=== PATIENT | female | born 1970 | race Caucasian/White ===

== ENCOUNTER 2016-08-02 14:43 | Inpatient (IN) | payer MEDICARE ==
[~2016-08-02] VITALS: Ht 165.1 cm; Wt 194.9 kg
--- NOTE | ~2016-08-02 | CON ---
PATIENT'S NAME: PAULA SCALES [facility] AGE: 45 Y [address] ROOM: [id number] [place], [place] [address] LOCATION: [facility] ADMIT DATE: 08/02/2016 Consultation DISCHARGE DATE: FAMILY PHYSICIAN: Nathaniel Rivera MD ATTENDING PHYSICIAN: AYDEN FREEMAN DATE OF CONSULTATION: 08/04/2016 REFERRING PHYSICIAN: SONAL CLIFTON MD REASON FOR CONSULTATION: Septic right total knee arthroplasty. HISTORY OF PRESENT ILLNESS: Ms. Scales is a 45-year-old, female who is morbidly obese and has had a chronically infected left total knee arthroplasty which has been suppressed with Bactrim. She follows with Dr. Jose from [facility] for this. On April 19, she underwent a right total knee arthroplasty. In May, this was complicated with a quad rupture that required repair. She has had that healed up well, as did the initial surgery. She then subsequently had some kind of ligamentous injury and underwent surgery for this, she thinks on June 25. This healed up except for a small wound that had continued to drain what sounds like serous material. Last week at the end of the week, it was noted that she had started to have some malodorous drainage. They kind of cleaned it up, and then on Tuesday it looked good, but then on Tuesday it looked bad again. So, she was transferred up here as her primary orthopedist, Dr. Talbot, was out of town. On arrival here, it looked like she had infection in the knee and she underwent an attempted aspiration. They revealed 10 mL of blood-tinged purulent fluid, and then on the , she went to the OR and underwent explant of the infected right total knee arthroplasty and bone cement and had placement of antibiotic for impregnated cement spacer and beads. She underwent a washout of the tissues. Cultures of her knee as well as blood culture are growing an alpha strep at this point. The patient has been on vancomycin and Zosyn. ID is asked to see and assist with further evaluation and treatment. She denies having had fevers, chills, sweats, nausea, vomiting, or diarrhea. She does not have too much pain now. She does not have any urinary symptoms either. PAST MEDICAL HISTORY: Significant for the multiple knee surgeries, asthma, and morbid obesity. She has had tonsillectomy and a right shoulder surgery. SOCIAL HISTORY: Does not smoke, drink, or use illicit drugs. FAMILY HISTORY: PATIENT'S NAME: GLEN SCALESHA Aubree [facility] AGE: 45 Y [address] ROOM: [place] [address] LOCATION: [facility] ADMIT DATE: 08/02/2016 Consultation DISCHARGE DATE: FAMILY PHYSICIAN: Nathaniel Rivera MD ATTENDING PHYSICIAN: AYDEN FREEMAN Significant for cancer on both sides of the family. MEDICATIONS: She is on, 1. Vancomycin. 2. Zosyn. 3. Bactrim. ALLERGIES: LISTED TO SILVER. REVIEW OF SYSTEMS: All remaining review of systems are negative. Pertinent positives and negatives are in the HPI. PHYSICAL EXAMINATION: GENERAL: She is a morbidly obese female, not in any acute distress. Awake, alert, and oriented. She is on O2 via nasal cannula. VITAL SIGNS: Her T-max is 100, blood pressure is now 138/79, pulse 91, respirations and 18. HEENT: NC/AT. EOMI. PERRLA. NECK: Supple. LUNGS: Coarse with some raspy wheezes, mostly inspiratory. HEART: Distant but regular. ABDOMEN: Protuberant, soft. EXTREMITIES: Right knee is now wrapped. Left knee looks fine, mildly warm, but there is no erythema. The incision is closed. She has mild edema of her legs. SKIN: Without rash. DATA: White count 9.4, hemoglobin 7.6, and platelet count 369. She has a sedimentation rate of 45. Synovial fluid: White cells were 64,030, red cells were 105,000, and 88% neutrophils. There were no crystals noted. Creatinine is 0.8. CRP is 13.2. ASSESSMENT AND PLAN: 1. Septic right total hip arthroplasty, status post stage I revision with hardware removal and placement of antibiotic spacers and beads. Culture with an alpha strep. 2. Bacteremia with an alpha strep. 3. 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 4. Morbid obesity. PLAN: PATIENT'S NAME: GLEN SCALESHA Aubree [facility] AGE: 45 Y [address] ROOM: [place] [address] LOCATION: [facility] ADMIT DATE: 08/02/2016 Consultation DISCHARGE DATE: FAMILY PHYSICIAN: Nathaniel Rivera MD ATTENDING PHYSICIAN: AYDEN FREEMAN We will continue on her chronic suppression for now, but I need to figure out what the organism, as is it may be covered by what she is on presently or going forward. Certainly with the vancomycin, we would cover MRSA or sensitive Staph. It sounds like she took an antibiotic intravenously 3 times a day, so I am wondering if it was cefazolin, but I am not sure why she would be on Bactrim. In any case, the current cultures are growing an alpha strep which is usually either Pneumococcus or a Viridans species. We will narrow her Zosyn to ceftriaxone, continue the vancomycin for now, and see what more data shows. She is going to need 6 weeks of IV antibiotics, then likely a revision; in 8-10 weeks, it should be okay. If it is going to be longer than that, we may need to consider some oral antibiotics for a short time. We will get a PICC line placed, and we will get repeat blood cultures as well, that would be ideal to make sure her blood cultures are clear prior to placing the PICC if possible, so perhaps this can be done on Tuesday. CHIVO LOPEZ MD RCS/modl /[id number] CC: Ayden Freeman MD d: 08/04/162002 t: 08/10/16 [facility], CONSULTATION REPORT
--- NOTE | ~2016-08-02 | OR ---
[facility] AGE[facility] 45 Y [address] ROOM: [place] [address] [place] [facility] [place] DATE: 08/02/2016 OR/Procedure Report DISCHARGE DATE: FAMILY PHYSICIAN: Nathaniel Rivera MD ATTENDING PHYSICIAN: AYDEN FREEMAN SURGEON: Ayden Freeman MD DUPLICATING MACHINE OPERATOR: Tc Shahid PA-C. DATE OF PROCEDURE: 08/03/2016 PREOPERATIVE DIAGNOSIS: Septic right total knee arthroplasty with purulent wound dehiscence. POSTOPERATIVE DIAGNOSIS: Septic right total knee arthroplasty with purulent wound dehiscence. PROCEDURE: 1. Explant of infected right total knee arthroplasty and bone cement 2. Placement of antibiotic impregnated cement joint spacers and beads. 3. Irrigation and debridement of right knee wound including skin, subcutaneous tissue, muscle, fascia, and bone, 20 cm in length by 10 cm in depth. 4. Placement of negative pressure incisional wound VAC for incision measuring approximately 20 cm in length. ANESTHESIA: General endotracheal anesthesia. FLUIDS: 2 L of crystalloids. EBL: 150. TOURNIQUET: Right proximal thigh at 300 mmHg for 2 hours. SPECIMEN: Explanted right total knee arthroplasty (Omni TKA). COMPLICATIONS: None. DISPOSITION: Stable in PACU. COUNTS: All counts were correct. IMPLANTS: Biomet antibiotic-impregnated distal femur/proximal tibia cement spacers and Stimulan antibiotic beads. Placement of Privena incisional wound vac system. INDICATIONS: Ms. Scales is a 45-year-old female with a septic right total knee replacement. She has an active wound with a wound VAC in place. I discussed the risks, benefits, and alternatives of pursuing the procedures as noted above. Anesthesia was consulted for their perioperative evaluation of PATIENT'S NAME: RADHA [place]IL[place] Aubree [facility] AGE: 45 Y [address] ROOM: [place] [address] [place] [facility] [place]: 08/02/2016 OR/Procedure Report DISCHARGE DATE: FAMILY PHYSICIAN: Nathaniel Rivera MD ATTENDING PHYSICIAN: AYDEN FREEMAN the patient. I marked the right lower extremity indicating the correct surgical site. OPERATIVE REPORT IN DETAIL: The patient was taken from the holding area to the operating room. A time-out was performed. General endotracheal anesthesia was administered. The patient was positioned supine on the operating table and all other bony prominences were padded. Notably, the patient is morbidly obese. A nonsterile tourniquet was placed in the right proximal thigh over Webril and a knee brace was placed beneath it. The right lower extremity was then prepped and draped in a sterile fashion. There was an active wound at the anterior aspect of the knee at the proximal portion of the incision with purulent drainage. The leg was elevated and allowed to exsanguinate. The tourniquet was inflated to 300 mmHg. I followed the previous incision over the anterior aspect of the knee through skin and subcutaneous tissue. I subsequently incised the capsule sharply. I removed any debris and suture material left over. There was florid purulence in the knee joint. I subsequently performed soft-tissue release medially, flexed the knee up and dislocated it. I used rongeurs to debride the soft tissue surrounding it. I used an osteotome to remove the tibia tray. Once the tibia was isolated, I was able to remove it. There was not much bone loss on the tibia side. I used a series of curettes to remove any excess bone on the tibia. I used a series of curettes to remove any excess cement from the intramedullary canal. I then turned my attention to the patella. Using an oscillating saw, I removed the patella button. I then used a 2.5 mm drill bit to remove the polyethylene pegs from their holes. I used a curette to remove any excess cement on the patella. There was not much bone loss on the patellar side. Notably just lateral to the patella was a full thickness retinacular tear of approximately 6 cm in length. I turned my attention to the distal femur. Using a series of osteotomes, I removed the femoral component. I removed the excess cement with a series of curettes. Again, there was not much bone loss on the femoral side. The wound was copiously irrigated with a normal sterile saline solution via pulsatile lavage using 9 L of solution that contained bacitracin. Any excess debris was removed from the joint. Every attempt was made to remove all of the pre-existing cement from the primary procedure. After the joint surfaces were prepared, we mixed our antibiotic cement spacers. I placed my tibial spacer followed by my femoral spacer and reduced PATIENT'S NAME: PAULA SCALES [facility] AGE: 45 Y [address] ROOM: [id number] [place], [place] [address] [place] [facility] [place] DATE: 08/02/2016 OR/Procedure Report DISCHARGE DATE: FAMILY PHYSICIAN: Nathaniel Rivera MD ATTENDING PHYSICIAN: AYDEN FREEMAN the joint. I made the knee achieved full extension and I placed a bump under to allow the cement to cure. The collaterals were stable. I placed antibiotic beads in the medial and lateral gutters to fill space and to optimize illusion of the antibiotic. A #1 PDS suture was used in an interrupted [id number] fashion to reapproximate the capsule. The same #1 PDS suture was used to repair the retinaculum in the same fashion. I then copiously irrigated the wound again with normal sterile saline solution via pulsatile lavage. I approximated the subcutaneous tissue, which is mostly scar tissues since the patient had been operated on on prior occasions, using 0 PDS suture to approximate this tissue. 0 nylon suture was used in a horizontal mattress fashion to approximate the skin. There was no undue tension of the surgical incision. Seeing that the entire wound was effectively loosely approximated to allow for drainage, I placed an incisional wound VAC. The tourniquet was then let down. The leg was cleaned off and dressings were placed in the form of Webril and Rudolph wrap from the foot up to the proximal thigh. The patient was then placed into a knee immobilizer. The patient was then transferred from the operating table onto the stretcher and extubated. She was subsequently brought to the recovery room in stable condition. There were no intraoperative complications noted. Of note, my PA, Tc Shahid PA-C, played an integral role in the intraoperative care of this patient. This included preoperative positioning, intraoperative expert retraction, and closing and dressing functions. IMPRESSION: The patient is status post the noted procedures above. PLAN: The patient may be weightbearing as tolerated on the right lower extremity. She will have a knee immobilizer or hinged knee brace locked in extension on at all times. Incisional wound VAC is currently in place. We will keep this on for anywhere from 48-72 hours. Antibiotics have been administered and will continue to be administered in the form of vancomycin and Zosyn. We are currently awaiting the results of the knee aspirate on admission. We will ask that the Hospitalist continue to manage the patient's concomitant medical comorbidities. We will ask the Physical Therapy and Occupational Therapy will be consulted for early ambulation and prevention of deconditioning. We will ask the Case Management and Social Work be consulted as the patient may require placement postoperatively. I will ask that Infectious Disease also be consulted to evaluate the results of the patient's cultures and make antibiotic recommendations moving forward. I will continue to watch the patient closely in the perioperative period. PATIENT'S NAME: PAULA SCALES [facility] AGE: 45 Y [address] ROOM: [place] [address] [place] [facility] [place] DATE: 08/02/2016 OR/Procedure Report DISCHARGE DATE: FAMILY PHYSICIAN: Nathaniel Rivera MD ATTENDING PHYSICIAN: AYDEN FREEMAN MD NUPUR CHOUDHURY/modl /[id number] d: 08/03/16 2341 t: 08/04/16 0853, OPERATIVE SUMMARY
--- NOTE | ~2016-08-02 | DS ---
PATIENT'S NAME: GLEN GARCIAHA Aubree [facility] AGE: 45 Y [address] ROOM: [place] [address] LOCATION: [facility] [place] ADMIT DATE: 08/02/2016 Discharge Summary DISCHARGE DATE: 08/12/2016 FAMILY PHYSICIAN: Nathaniel Rivera MD ATTENDING PHYSICIAN: Ayden Freeman DATE OF TRANSFER: August 12, 2016. ADMITTING DIAGNOSES: Septic right total knee arthroplasty with wound dehiscence and bacteremia DISCHARGE DIAGNOSES: Spetic right total knee arthroplasty with wound dehiscence and bacteremia SECONDARY DIAGNOSES: 1. Asthma. 2. Morbid obesity. 3. Obstructive sleep apnea. 4. Chronic hypoxic respiratory failure. 5. History of deep venous thromboses. 6. Atrial fibrillation, on Xarelto. 7. History of recurrent periprosthetic infections. 8. History of mediastinal lymphedema, which was ruled to be benign. 9. History of peptic ulcer disease. TRANSFER STATUS: Good. CONSULTATIONS: Dr. Bebo Hardwick with Infectious Disease, Dr. William Frye, Hospitalist Service for medical management. Wound Care was also consulted for wound VAC management. PROCEDURES: The patient on August 02 underwent an aspiration of right knee at bedside, the aspiration was done by Dr. Freeman. On August 03, 2016, the patient underwent the following procedure by Dr. Freeman. 1. Explant of infected right total knee arthroplasty and bone cement. 2. Placement of antibiotic-impregnated cement joint spacers and beads. 3. Irrigation and debridement of right knee wound including skin, subcutaneous tissue, muscle, fascia, and bone, 20 cm in length x 10 cm in depth. 4. Placement of negative pressure incisional wound VAC for incisional measuring approximately 20 cm in length. HISTORY OF PRESENT ILLNESS: The patient is a 45-year-old female who underwent a right knee replacement in the past. She has subsequent rupture of her right PATIENT'S NAME: RADHA [facility] AGE: 45 Y [address] ROOM: [place] [address] LOCATION: [facility] [place] ADMIT DATE: 08/02/2016 Discharge Summary DISCHARGE DATE: 08/12/2016 FAMILY PHYSICIAN: Nathaniel Rivera MD ATTENDING PHYSICIAN: Ayden Freeman quadriceps tendon, which required surgical repair. She also reported 3 previous operations to her left knee. She had been treated and operated on by Dr. Talbot in [place], [place]. The patient prior to admission was having a wound problem, was being treated with negative pressure wound VAC of her right knee. She was also on Bactrim for chronic antibiotic suppression therapy of her left knee, which is infected. Dr. Freeman had received a phone call, the patient's right knee had become more symptomatic. She had developed a cellulitis of her right leg. There was also noted purulent drainage accumulating the patient's wound VAC canister 24 hours prior to admission. Dr. Talbot was out of town and his PA contacted Dr. Freeman for transfer to [facility] for definitive orthopedic care. HOSPITAL COURSE: The patient underwent the above described procedures by Dr. Freeman. Blood cultures did show that she was bacteremic with streptococcus oralis. She was treated with IV antibiotics. Infectious Disease was consulted for management of the bacteremia. The hospitalists were also consulted and managed the patient medically while in the hospital. The patient did work with Physical Therapy and Occupational Therapy with transfers. She was weightbearing as tolerated in a knee immobilizer, locked in extension that she had from prior to the admission. The patient was kept under adequate pain control during her admission. The patient's overall bacteremia did resolve, but the patient will need to be on long-term IV antibiotics due to her septic joint. Arrangements were made by the Case Management to have the patient transferred to [facility] for long-term fpc care. The patient may also be seen by Dr. Talbot in [place]. DISCHARGE/TRANSFER INSTRUCTIONS: The patient was transferred to [facility] on August 12, 2016. The patient was transferred with a right incisional wound VAC to her right knee. Wound VAC changes were instructed on Tuesday, Tuesday, Tuesday, per wound care instruction. The patient is to be weightbearing as tolerated to the right lower extremity in a hinged knee brace locked in extension. She is to continue with Occupational and Physical Therapy. The patient is to have a regular diet. The patient was transferred to the care of AGUSTIN Saucedo. Dr. Talbot will follow the patient while in [place]. Arrangements will be followed to have the patient followed up with Dr. Freeman in a couple weeks. Transfer status was good. ANGELI RODRÍGUEZ PA-C FOR AYDEN FREEMAN MD TJW/modl PATIENT'S NAME: PAULA GARCIA [facility] AGE: 45 Y [address] ROOM: [place] [address] LOCATION: [facility] [place] ADMIT DATE: 08/02/2016 Discharge Summary DISCHARGE DATE: 08/12/2016 FAMILY PHYSICIAN: Nathaniel Rivera MD ATTENDING PHYSICIAN: Ayden Freeman /[id number] d: 08/27/16 0337 t: 08/30/16 1017, DISCHARGE SUMMARY
--- NOTE | ~2016-08-02 | HP ---
PATIENT'S NAME: PAULA SCALES [facility] AGE: 45 Y [address] ROOM: [address] [address] [place] [facility] [place]: 08/02/2016 History & Physical DISCHARGE DATE: FAMILY PHYSICIAN: Nathaniel Rivera MD ATTENDING PHYSICIAN: AYDEN FREEMAN DATE OF SERVICE: CHIEF COMPLAINT: Right knee pain and drainage. HISTORY OF PRESENT ILLNESS: Ms. Scales is a pleasant 45-year-old morbidly obese female who underwent a right knee replacement in the past. She subsequently ruptured her quadriceps tendon and required surgical repair. She reports 3 previous operations to this left knee. She has been treated and operated on by Dr. Talbot in [place], [place]. The patient currently has a wound problem and is being treated with a negative pressure wound VAC. She is on Bactrim for chronic antibiotic suppression therapy as her left knee is infected. At this time, the right knee is quite symptomatic. She has a cellulitis on her leg. Dr. Talbot is currently out-of-town, and Dr. Talbot's PA, Marne, contacted us of the patient's transfer to [facility] for definitive orthopedic care. Note that in the last 24 hours, the PA in [place] noted purulent drainage accumulating in the wound VAC canister. This prompted the concern for new infection and transfer to our care. Currently, the patient denies any constitutional symptoms such as fever, chills, or night sweats. She also denies any dizziness, chest pain, blurred vision, nausea, vomiting, or diarrhea. The patient does report shortness of breath and this is positional in nature. PAST MEDICAL HISTORY: Chronic asthma Morbid obesity PAST SURGICAL HISTORY: Includes a previous left knee replacement that is chronically infected and treated with antibiotics for suppression therapy, a right total knee replacement followed by a right quadriceps tendon repair, followed by a right knee wound dehiscence with subsequent repeat I and D of the right knee and placement of negative pressure wound VAC, tonsillectomy, and right shoulder surgery. SOCIAL HISTORY: No alcohol, tobacco, or illicit drug use. The patient is an independent ambulator at baseline. PATIENT'S NAME: GLEN SCALESHA Aubree [facility] AGE: 45 Y [address] ROOM: [address] [address] [place] [facility] [place]: 08/02/2016 History & Physical DISCHARGE DATE: FAMILY PHYSICIAN: Nathaniel Rivera MD ATTENDING PHYSICIAN: AYDEN FREEMAN FAMILY HISTORY: There is a history of cancer on the maternal and paternal sides of the family. MEDICATIONS: Currently, include: 1. Bactrim. 2. Sodium bromide. 3. Fluticasone. 4. Furosemide. 5. Pantoprazole. 6. Metoprolol. 7. Gabapentin. 8. Diltiazem. 9. Ropinirole. 10. Digoxin. 11. Potassium chloride. 12. Meloxicam. 13. Zolpidem. 14. Albuterol. 15. Oxycodone. 16. Acetaminophen. 17. Xarelto, which the patient took last yesterday. ALLERGIES: INCLUDE SILVER. PHYSICAL EXAMINATION: VITAL SIGNS: Blood pressure 113/60, 99.1 is temperature, a 100 pulse, and respiratory rate 22. GENERAL: The patient is awake, alert, and oriented x3. She is in no acute distress. She is actively conversing with me at the bedside. HEENT: Normocephalic and atraumatic. Extraocular motion intact. PERRLA. Moist mucous membranes. Oropharyngeal airway is clear. NECK: Supple. Trachea is midline. ABDOMEN: Soft, nontender, and nondistended. CHEST: Normal respirations are observed bilaterally. CARDIOVASCULAR: Regular rate and rhythm. MUSCULOSKELETAL: Right lower extremity: Focal examination of the patient's right lower extremity reveals that she is grossly neurologically intact distally. There is palpable dorsalis pedal and posterior tibial pulses. There is florid cellulitis of the leg. There is a partially healed surgical incision at the anterior aspect of the knee from previous knee replacement. The proximal aspect of the incision is covered with a negative pressure wound VAC. The patient showed me a picture of her right knee wound, which measures approximately 2 cm x 2 cm x 10 cm in depth. There is good capillary refill in PATIENT'S NAME: PAULA SCALES [facility] AGE: 45 Y [address] ROOM: [address] [address] [place] [facility] [place]: 08/02/2016 History & Physical DISCHARGE DATE: FAMILY PHYSICIAN: Nathaniel Rivera MD ATTENDING PHYSICIAN: AYDEN FREEMAN the toes. She has active and passive range of motion of the ankle and strength is well-preserved distally. Sensation intact to light touch at L2 through S1. The patient has active extension of the knee and quadriceps strength graded at 4+/5. Her collateral ligaments appear stable. Left lower extremity: Focal examination of the patient's left lower extremity reveals a well-healed surgical incision on the anterior aspect of the left knee. There is no knee joint effusion present. The patient has full range of motion of the knee and her collaterals are stable. Compartments of the thigh, leg, and foot are soft bilaterally. Sensation is intact to light touch at L2 through S1. There is palpable pulses, full strength, and range of motion of the ankle. The patient's quadriceps mechanism is intact and her quad strength is 4+/5. IMAGING: Plain radiographs of the right lower extremity were previously obtained. There is evidence of a right total knee arthroplasty in place. LABORATORY DATA: Currently, pending an aspiration of the right knee recently undertaken by me here at the bedside. IMPRESSION: Right infected total knee arthroplasty with wound dehiscence. PLAN: I had a long discussion with the patient today regarding her right knee. I accepted the patient under my care from [place]. She has a wound that has purulent drainage that has been slow to heal. The patient has a chronically infected left knee that is undergoing antibiotic suppression therapy. Currently, her left knee is asymptomatic. The right knee on the other hand is another story. I explained to the patient at the very least she would need irrigation and debridement of the right knee in exchange of the polyethylene liner. More than likely, the patient will require an irrigation and debridement of the right knee with explant of her right total knee arthroplasty. I discussed the risks, benefits, and alternatives pursuing a surgical intervention with the patient in detail. I discussed the risks of new infection, bleeding, and/or injury to neurovascular structures about the right lower extremity. The patient has already had 3 major operations to the right knee. There is a chance that even under the best circumstances, the patient may not be suitable to have the right knee reimplanted at a later date. The patient may even require fusion as a salvage procedure. I discussed with her the process of the risks, benefits, and alternatives pursuing a right knee aspiration at the bedside to send the fluid for analysis in the lab. The patient was agreeable to this as well and informed consent was obtained for both the aspiration and the surgery planned for tomorrow. PATIENT'S NAME: PAULA SCALES [facility] AGE: 45 Y [address] ROOM: [address] [address] [place] [facility] [place]: 08/02/2016 History & Physical DISCHARGE DATE: FAMILY PHYSICIAN: Nathaniel Rivera MD ATTENDING PHYSICIAN: AYDEN FREEMAN Prior to pursuing the surgery, I will obtain a CT scan of the right knee tonight. We will also obtain a battery of blood work going forward. The patient last took Xarelto yesterday. We will hold that for now. She is currently on Bactrim though we will hold any further antibiotic treatment until the knee is aspirated today. We will likely start the patient on vancomycin and Zosyn. We will have the pharmacy to dose this. We have asked the hospitalist to see and evaluate the patient for preoperative medical optimization and clearance for OR tomorrow. We will make the patient nonweightbearing in the right lower extremity for now. I will request that the patient be transferred to a bariatric bed. I will continue to follow the patient closely in the perioperative period. MD NUPUR CHOUDHURY/modl /[id number] D: 052 T: 845 HISTORY & PHYSICAL
--- NOTE | ~2016-08-02 | CON ---
PATIENT'S NAME: GLEN GARCIAHA Aubree [facility] AGE: 45 Y [address] ROOM: [place] [address] [place] [facility] [place] DATE: 08/02/2016 Consultation DISCHARGE DATE: FAMILY PHYSICIAN: Nathaniel Rivera MD ATTENDING PHYSICIAN: AYDEN FREEMAN DATE OF CONSULTATION: 08/02/2016 REQUESTING PHYSICIAN: Ayden Freeman MD. REASON FOR CONSULTATION: Medical management. HISTORY OF PRESENT ILLNESS: The patient is a 45-year-old female with past medical history most significant for bilateral total knee replacements with subsequent longstanding complicated infections on both sides. These have required prior reoperation as well as lifelong suppressive therapy with Bactrim for her left knee, and a recurrent osteomyelitis/cellulitis of her right knee. The patient was brought to the hospital today by Dr. Freeman for surgical management of a right periprosthetic arthritis/osteomyelitis. The patient does have a wound VAC over an open wound on that right knee. The entire knee feels quite warm and swollen and it is also painful. REVIEW OF SYSTEMS: Significant for pain, but no nausea, vomiting, chest pain, shortness of breath beyond baseline, diaphoresis, or syncope. All systems have been reviewed and are negative aside from pertinent positives mentioned above. PAST MEDICAL HISTORY: This had to be extracted from our medical records, as the patient is quite a poor historian, significant for, 1. Long-standing asthma. 2. Morbid obesity due to excess calories. 3. Obstructive sleep apnea, on CPAP. 4. Chronic hypoxic respiratory failure. 5. History of DVTs. 6. History of atrial fibrillation, currently on Xarelto. 7. Recurrent periprosthetic infections, requiring Bactrim therapy. 8. Distant history of mediastinal lymphadenopathy which proved to be benign. 9. History of peptic ulcer disease, supposedly now treated. SURGICAL HISTORY: PATIENT'S NAME: RADHA [facility] AGE: 45 Y [address] ROOM: [place] [address] LOCATION: [facility] [place] DATE: 08/02/2016 Consultation DISCHARGE DATE: FAMILY PHYSICIAN: Nathaniel Rivera MD ATTENDING PHYSICIAN: AYDEN FREEMAN Significant for shoulder surgeries and multiple knee surgeries as above. CURRENT MEDICATIONS: 1. Tylenol Extra Strength. 2. Aclidinium bromide. 3. Albuterol. 4. Digoxin. 5. Diltiazem. 6. Breo Ellipta. 7. Furosemide 20. 8. Gabapentin. 9. Meloxicam. 10. Metoprolol. 11. Oxycodone/acetaminophen. 12. Pantoprazole. 13. Potassium chloride. 14. Requip. 15. Bactrim DS twice a day. 16. Ambien. SOCIAL HISTORY: The patient denies any history of drug, tobacco, or illicit substance abuse. FAMILY HISTORY: Significant for cancer on both sides of the family in the 60s. PHYSICAL EXAMINATION: VITAL SIGNS: Blood pressure is 113/60, heart rate is 100, temperature 99, and saturating 91% on room air. GENERAL: Appears as a morbidly obese, middle-aged female, in no acute distress. NEUROLOGICAL: Grossly nonfocal. EYES: Pupils are equal and reactive to light. LYMPHATIC: No cervical lymphadenopathy. ENDOCRINE: No thyromegaly. LUNGS: Exhibit diminished respiratory effort, but clear to auscultation. No wheezing. HEART: Regular rate and rhythm. No appreciable murmurs, gallops, or rubs. GI: Abdomen is obese, soft, nontender, and nondistended. : No costovertebral angle tenderness. VASCULAR: 2+ pedal pulses. MUSCULOSKELETAL: Considerable warmth and erythema around the right knee. There is a wound VAC over that knee draining purulent fluid. SKIN: Warm and dry. PSYCHIATRIC: Appropriate mood, cognition, and affect. PATIENT'S NAME: PAULA GARCIA [facility] AGE: 45 Y [address] ROOM: [address] [address] [place]: [facility] [place] DATE: 08/02/2016 Consultation DISCHARGE DATE: FAMILY PHYSICIAN: Nathaniel Rivera MD ATTENDING PHYSICIAN: AYDEN FREEMAN LABORATORY DATA: No studies are available as of now. IMPRESSION AND RECOMMENDATIONS: This is a morbidly obese, 45-year-old female, who is admitted with, 1. Recurrent periprosthetic osteomyelitis. Per discussion with Dr. Freeman, he will tap the joint and the patient will be taken to the OR for possible removal of the hardware. We will start antibiotic after those 2 procedures are completed. 2. Asthma. At this point, the patient appears to be at baseline and we will continue her on her asthma regimen. 3. Obstructive sleep apnea. We will continue the patient on BiPAP with home settings. 4. Atrial fibrillation/history of deep venous thrombosis. We will hold off on her Xarelto if a surgical procedure is planned. We will continue her on digoxin and Cardizem. We will monitor her electrolytes and heart rates while she is in the hospital. 5. Morbid obesity due to excess calories noted. Additional management will depend on clinical course. Time dedicated to patient's encounter is 35 minutes. We will follow the patient with you. Thank you for allowing us to participate in the care of this patient. MD GUILLERMO MORALES/savanna /[id number] d: 08/03/16 0056 t: 08/08/16 1534, CONSULTATION REPORT
--- NOTE | ~2016-08-02 | ECHO ---
Transthoracic Echocardiography Report (TTE) Demographics Patient Name PAULA GARCIA Date of Study 08/08/2016 Patient Number [id number] Visit Number [id number] Date of 1970 Room Number G3215 Gender Female Number Age 45 year(s) Referring Miguel Montgomery Certified Travel Counselor Kayode RVT, RDCS Physician Anne Physician Interpreting Russell Leslie MD Manager Nuclear Physician Supervising Ordering Derek Acevedo MD, MD/MLP Physician Nurse Stress State Manager Conclusions Contractility Score Summary Normal Left Ventricular contractility was noted. Summary Technically difficult exam due to patients body habitus. The estimated left ventricular ejection fraction is 60-65%. 3 mL Definity contrast was administered. Moderate concentric left ventricular hypertrophy with normal internal dimension,EF and WM. Trivial MR and TR. Procedure Type of Study TTE procedure:2D Echocardiogram, M-Mode, Doppler , Color Doppler, Contrast study. Procedure Date Date: 08/08/2016 Start: 08:04 AM Study Location: Imaging Center Technical Quality: Limited visualization Indications:Murmur. Appropriate Use Criteria: 7 Patient Status: Routine HR: 103 bpm BP: 127/64 mmHg M-Mode/2D Measurements LV Diastolic Dimension: 4.73 cm LV Systolic Dimension: 2.75 cm LV Septum Diastolic: 1.69 cm LV PW Diastolic: 1.89 cm AO Root Dimension: 2.2 cm Cardiac Output: 8.25 l/min LA Dimension: 3.6 cm LVOT: 2 cm LVOT VTI: 25.5 cm RV Base: 3.18 cm LV Stroke volume: 80.07 ml RV Length: 7.14 cm TAPSE: 3.28 cm TDI-S': 21.9 cm/s Doppler Measurements AV Peak Velocity: 1.92 m/s MV Peak E-Wave: 1.2 m/s AV Peak Gradient: 14.75 mmHg MV Peak A-Wave: 0.97 m/s AV Mean Gradient: 10 mmHg MV E/A Ratio: 1.24 LVOT Peak Velocity: 1.14 m/s MV P1/2t: 67 msec PV Peak Velocity: 1.28 m/s E' Septal Velocity: 0.13 m/s PV Peak Gradient: 6.55 mmHg E' Lateral Velocity: 0.14 m/s A' Septal Velocity: 0.08 m/s A' Lateral Velocity: 0.2 m/s Findings Left Ventricle Moderate concentric left ventricular hypertrophy with normal internal dimension,EF and WM. Right Ventricle Normal right ventricle structure and function. Left Atrium Normal left atrial size. Right Atrium Normal right atrial size. Mitral Valve Trivial mitral regurgitation by color Doppler. Aortic Valve Normal aortic valve structure and function. Tricuspid Valve Trivial tricuspid regurgitation by color Doppler. Pulmonic Valve The pulmonic valve is not well visualized. Pericardial Effusion No evidence of pericardial effusion. Pleural Effusion No evidence of pleural effusion. Contractility Score LV regional wall motion:(0-Non visualized 1-Normal 2-Hypokinesis 3-Akinesis 4-Dyskinesis 5-Aneurysm) Signature dtt: Mariama Wells dtd: 08/08/16 0804 Physician Self Edit
--- NOTE | ~2016-08-02 | OR ---
PATIENT'S NAME: PAULA GARCIA [facility] AGE: 45 Y [address] ROOM: [place] [address] [place] [facility] [place]: 08/02/2016 OR/Procedure Report DISCHARGE DATE: FAMILY PHYSICIAN: Nathaniel Rivera MD ATTENDING PHYSICIAN: WILY BRANDT SURGEON: Wily Brandt MD INCINERATOR OPERATOR: DATE OF PROCEDURE: 08/02/2016 INDICATION: A 45-year-old female. Right knee aspiration at the bedside. PROCEDURE REPORT IN DETAIL: Under sterile preparation, the right knee was aspirated using a 6-inch 18-gauge needle to the superolateral aspect of the knee. Using a 10 mL syringe, 10 mL of blood-tinged purulent fluid was aspirated from the joint space. A clean Band-Aid was placed over the aspirated area. The patient tolerated the procedure well. The fluid will be sent to the lab for analysis. WILY BRANDT MD RCD/modl /[id number] d: 08/03/16 0024 t: 08/03/16 1413, OPERATIVE SUMMARY
[2016-08-02] MEDS ORDERED: TUDORZA PRESS400 MCG INH (16:16)
[2016-08-02] MEDS ORDERED: BREO ELLIPTA 21 EACH INH (16:17)
[2016-08-02] MEDS ORDERED: PROTONIX40 MG PO (16:17)
[2016-08-02] MEDS ORDERED: LASIX20 MG PO (16:17)
[2016-08-02] MEDS ORDERED: NEURONTIN300 MG PO ×2 (16:18→16:19)
[2016-08-02] MEDS ORDERED: LOPRESSOR25 MG PO (16:18)
[2016-08-02] MEDS ORDERED: CARTIA XT240 MG PO (16:19)
[2016-08-02] MEDS ORDERED: ROPINIROLE HCL5 MG PO (16:20)
[2016-08-02] MEDS ORDERED: LANOXIN (DIGI125 MCG PO (16:20)
[2016-08-02] MEDS ORDERED: MOBIC15 MG PO (16:21)
[2016-08-02] MEDS ORDERED: BACTRIM DS1 TAB PO (16:21)
[2016-08-02] MEDS ORDERED: POTASSIUM CHLO10 MEQ PO (16:21)
[2016-08-02] MEDS ORDERED: AMBIEN10 MG PO (16:21)
[2016-08-02] MEDS ORDERED: PROAIR HFA8.5 GM INH (16:22)
[2016-08-02] MEDS ORDERED: PERCOCET 10-321 EACH PO (16:22)
[2016-08-02] MEDS ORDERED: TYLENOL EXTRA500 MG PO (16:22)
--- NOTE | 2016-08-02 16:49 | NUR ---
patient is 45 yo female admitted for I&D of right knee wound. has hx of infection after the knee was replaced in 06/2015. patient had surgery 2 weeks after initial replacement surgery, then 2 weeks after that, then did okay. she states she has had problems on , and now is admitted again on 08/02/16 for I&D of wound. IV is started in left forearm with 20 ga intracath without difficulty. lidocaine was used per pt request. shay well. education is given as documented. patient denies questions at this time. foot pneumatics are on bilaterally. call light is within reach. patient denies other needs. watches tv. report is given to ELVIS Dupree.
[2016-08-02 18:41] LABS: BASOPHIL % 0.4 %; EOSINOPHIL # 0.2 K/uL (0.0-0.5); EOSINOPHIL % 2.4 %; HEMOGLOBIN 9.3 g/dL (10.0-15.0); IMMATURE GRANULOCYTE # 0.1 K/uL (0.0-0.3); IMMATURE GRANULOCYTE % 0.6 %; LYMPHOCYTE # 1.5 K/uL (0.8-4.0); LYMPHOCYTE % 16.4 %; MCH 21.3 pg (27.0-34.0); MCHC 28.2 gm/dL (32.0-36.5); MCV 75.7 fl (83.0-98.0); MONOCYTE # 0.7 K/uL (0.0-1.0); MPV 8.8 fl (9.4-12.4); NEUTROPHIL # (ANC) 6.5 K/uL (1.8-7.8); NEUTROPHIL % 72.2 %; NRBC % 0.2 /100WBC (0-0.00); PLATELET COUNT 450 K/uL (150-450); RBC 4.36 M/uL (3.50-5.50); RDW-CV 18.5 % (11.9-14.6)
[2016-08-02 18:56] LABS: ALBUMIN 3.3 gm/dL (3.5-5.0); ALK PHOS 66 IU/L (33-138); ALT 16 IU/L (12-78); ANION GAP 16.2 (10.0-19.0); AST 12 IU/L (10-40); BLOOD UREA NITROGEN 10 mg/dL (6-24); CALCIUM 8.4 mg/dL (8.5-10.5); CHLORIDE 100 mMol/L (96-110); CO2 27 mMol/L (22-32); CREATININE 0.8 mg/dL (0.5-1.1); ESTIMATED GFR (MDRD EQUATION) > 60; POTASSIUM 4.2 mMol/L (3.7-5.1); SODIUM 139 mMol/L (135-145); TOTAL BILIRUBIN 0.3 mg/dL (0.0-1.5); TOTAL PROTEIN 7.2 g/dL (6.0-8.4)
--- NOTE | 2016-08-02 19:36 | NUR ---
Significant Event:Up to floor about [id number].Rt.knee has wound vac on it.Rt.knee/leg swollen & very reddened.SL in Rt.arm.Was amb when first here,is now ordered no wt.bearing on Rt.leg. was in and with екатерина 10ml serosanguious fld from Rt.knee to send to lab for testing.Ordered her a bariatric bed.Is to have surgery tomorrow morning on Rt.knee.NPO after midnoc.No c/o pain except for headache. Follow up:
--- NOTE | 2016-08-03 03:58 | NUR ---
Significant Event: Wound vac to R) leg. Dressing to r) knee intact. CSM WNL. 1 assist to the bedside commode. NWB to R) leg. On CPAP and 3 L of oxygen was added to CPAP, MD aware. NPO since midnight. Permits not signed. Percocet last at 0331. Tylenol at 1926. Had an Ambien at 2204. Voids without difficulty. A&O x3. Follow up:
--- NOTE | 2016-08-03 13:33 | NUR ---
0730 BAG BATH COMPLETED WITH HIBICLENSE SOAP. RASHID CARES COMPLETED WELL. PT TOLERATED WELL AND WAS VERY APPRECIATIVE.
--- NOTE | 2016-08-03 17:04 | NUR ---
Significant Event: patient alert and oriented x3. wound vac to r) knee, patient changed out canister this am, note approximately 250ml out. pérez wrap to r) lower leg c/d/i. csm assessment wnl to r) lower leg. foot pump to l) foot. 1151 received oxycodone 1 tab for c/o r) leg pain, rate pain 4-2 on pain scale. med's given with sip of water. npo, for surgery. to surgery at 1400. on O2 at 3l/nc, O2 sats 90%. lab called regarding critical result, blood cultures positive for gram positive cocci Mayra santizo in OR with Dr. Brandt notified. Follow up:
--- NOTE | 2016-08-04 05:11 | NUR ---
Significant Event: Patient is alert and oriented x 3. VSS on Bipap. Max temp of 100.0. Refused to dangle at bedside or get out of bed. Dressing to right lower extremity is intact. Wound vac to right lower extremity intact, draining bloody drainage. CSM to right lower extremity is WNL. Right hand IV, saline locked. Left forearm IV, saline locked. Receiving intermittent antibiotics. Received Percocet for pain last at 0344. Patient is pleasant and cooperative with cares. Follow up:
[2016-08-04 06:08] LABS: BASOPHIL % 0.3 %; EOSINOPHIL # 0.1 K/uL (0.0-0.5); EOSINOPHIL % 0.5 %; HEMATOCRIT 26.8 % (33.0-46.0); IMMATURE GRANULOCYTE # 0.1 K/uL (0.0-0.3); IMMATURE GRANULOCYTE % 0.7 %; LYMPHOCYTE # 1.2 K/uL (0.8-4.0); LYMPHOCYTE % 12.2 %; MCH 21.3 pg (27.0-34.0); MCHC 27.6 gm/dL (32.0-36.5); MCV 77.2 fl (83.0-98.0); MONOCYTE # 0.6 K/uL (0.0-1.0); MONOCYTE % 6.5 %; NEUTROPHIL # (ANC) 7.5 K/uL (1.8-7.8); NEUTROPHIL % 79.8 %; NRBC % 0.2 /100WBC (0-0.00); PLATELET COUNT 369 K/uL (150-450); RBC 3.47 M/uL (3.50-5.50); RDW-CV 18.7 % (11.9-14.6); WBC 9.4 K/uL (4.0-11.0)
[2016-08-04 06:10] LABS: HEMOGLOBIN 7.4 g/dL (10.0-15.0)
[2016-08-04 10:08] LABS: HEMATOCRIT 27.2 % (33.0-46.0)
[2016-08-04 10:09] LABS: HEMOGLOBIN 7.6 g/dL (10.0-15.0)
--- NOTE | 2016-08-04 15:40 | NUR ---
Received consult to arrange for patient to go to [facility] on discharge because she will need continued IV antibiotics and the wound vac. I met with patient and introduced myself to her. I explained the role of the care management department to her. Patient states she would prefer going home vs swingbed. She states that she is already set up with [facility] and has a home wound vac. She states she has done home infusion in the past when she had a PICC line and is comfortable with Home Infusion and Home Health care, but she said she will agree to a SWB if that is what the doctor recommends. I shared patient's preference with HANK Merino and she states that Dr. Lawton and she have concerns about patient's compliance when at home and her ability to care for herself at home. It was reported today that it took 4 staff to help her to the bedside commode today. I placed a call to Kady B Coordinator at [facility] and she states they are not able to accept the patient due to the length of time for the IV antibiotics (6 weeks). Kady recommends that I call [facility]. I will check with patient and see what her preference is [facility] and [facility]. I will notify Dr. Coon and let her know that [facility] is not able to accept patient at this time. Will continue to work on finding placement for patient.
--- NOTE | 2016-08-04 17:03 | NUR ---
Significant Event:VSS, Percocet 1 tab x 4, last dose at 1700 rates pain 4-8/10. CSM adequate to R lower extremity, pt worked on tx with PT/OT staff, log rolls in bed well, mechanical lift used also. Dsg to R knee is CDI, wound vac remains intact, with bloody drainage per tubing.IVSL x 2, one R hand, and one in L FA. Uses IS several times, up to 1999. Continues on ATB Follow up:CSM checks, pain control, work with therapies gait/strength training.
--- NOTE | 2016-08-05 04:10 | NUR ---
Significant Event: Patient is alert and oriented x 3. VSS on Bipap. Wears 4L of O2 during the day. Up with 3 assist, full lift. Dressing/immobilizer to right lower extremity is intact. Wound vac to right lower extremity is intact, bloody drainage in tubing. CSM is WNL. Voiding well. Percocet given for pain last at 2347. Soma given at 2347. Morphine given last at 2056. Left forearm IV, saline locked. Right hand IV, saline locked. Receiving intermittent antibiotics. Patient is pleasant and cooperative with cares. Follow up:
[2016-08-05 05:12] LABS: BASOPHIL % 0.2 %; EOSINOPHIL # 0.2 K/uL (0.0-0.5); EOSINOPHIL % 2.7 %; HEMATOCRIT 25.1 % (33.0-46.0); IMMATURE GRANULOCYTE # 0.1 K/uL (0.0-0.3); IMMATURE GRANULOCYTE % 0.9 %; LYMPHOCYTE # 1.3 K/uL (0.8-4.0); LYMPHOCYTE % 15.3 %; MCH 21.6 pg (27.0-34.0); MCHC 27.9 gm/dL (32.0-36.5); MCV 77.5 fl (83.0-98.0); MONOCYTE # 0.7 K/uL (0.0-1.0); MONOCYTE % 8.7 %; MPV 9.1 fl (9.4-12.4); NEUTROPHIL # (ANC) 6.1 K/uL (1.8-7.8); NEUTROPHIL % 72.2 %; NRBC % 0.2 /100WBC (0-0.00); PLATELET COUNT 333 K/uL (150-450); RBC 3.24 M/uL (3.50-5.50); RDW-CV 18.4 % (11.9-14.6); WBC 8.5 K/uL (4.0-11.0)
--- NOTE | 2016-08-05 11:30 | NUR ---
I have examined the student charting and find it acceptable. ELVIS iMchaels
--- NOTE | 2016-08-05 15:48 | NUR ---
Met with patient with HANK Merino today. Per Nadia, patient will likely be here until Tuesday. Nadia had a conversation with HANK aFrrar with Dr. Lawton and he indicated that patient would need to stay through the weekend. Medical providers would still like for patient to go to a swingbed. I shared with Nadia Whitlock and the patient that [facility] is not able to accept her. Patient is agreeable to [facility] so I will make a referral for there. Will continue to follow while here.
--- NOTE | 2016-08-05 17:23 | NUR ---
SIgnificant event: Patient is alert and oriented x3. VSS. RT increased Oxygen to 4.5l per NC. Wears bipap at night. Full lift or up with 3 assist. Wound vac to right lower extremity is patent. Small amount of bloody drainage. CSM has been within normal limits today. Dressing is intact to right knee, immobilizer in place. Voiding well, uses bed cárdenas and voids large amounts. Percocet given at 1325. Dilaudid last was given this morning. IV to right hand reinforced with coban, is saline locked and does have intermittent antibiotics. Continues to work with PT/OT. Cooperative with cares.
--- NOTE | 2016-08-06 03:37 | NUR ---
NEURO: CMS WNL. CARDIO: Xarelto. Foor pumps. RESP: Bipap at noc. $.5 liters NC during day. GI/: Bedpan. Voids copious amounts. SKIN: Wound vac to right knee. Ortho ice in freezer. IV: SL. ACTIVITY: PT/OT. Full lift or max 3 assist. PAIN: Percocet Q2H PRN. PLAN: [facility]?
[2016-08-06 05:45] LABS: BASOPHIL % 0.3 %; EOSINOPHIL # 0.3 K/uL (0.0-0.5); EOSINOPHIL % 3.3 %; HEMATOCRIT 23.9 % (33.0-46.0); IMMATURE GRANULOCYTE # 0.1 K/uL (0.0-0.3); IMMATURE GRANULOCYTE % 1.1 %; LYMPHOCYTE # 1.1 K/uL (0.8-4.0); LYMPHOCYTE % 12.4 %; MCH 21.7 pg (27.0-34.0); MCHC 28.5 gm/dL (32.0-36.5); MCV 76.4 fl (83.0-98.0); MONOCYTE # 0.6 K/uL (0.0-1.0); MONOCYTE % 6.7 %; NEUTROPHIL % 76.2 %; NRBC % 0.3 /100WBC (0-0.00); PLATELET COUNT 360 K/uL (150-450); RBC 3.13 M/uL (3.50-5.50); RDW-CV 18.5 % (11.9-14.6); WBC 9.1 K/uL (4.0-11.0)
[2016-08-06 05:51] LABS: HEMOGLOBIN 6.8 g/dL (10.0-15.0)
[2016-08-06 05:54] LABS: ALBUMIN 2.3 gm/dL (3.5-5.0); ANION GAP 11.8 (10.0-19.0); BLOOD UREA NITROGEN 7 mg/dL (6-24); CALCIUM 8.2 mg/dL (8.5-10.5); CHLORIDE 101 mMol/L (96-110); CO2 32 mMol/L (22-32); CREATININE 0.6 mg/dL (0.5-1.1); ESTIMATED GFR (MDRD EQUATION) > 60; MAGNESIUM 1.8 mg/dL (1.3-2.6); PHOSPHORUS 4.5 mg/dL (2.5-4.9); POTASSIUM 3.8 mMol/L (3.7-5.1); SODIUM 141 mMol/L (135-145)
--- NOTE | 2016-08-06 15:23 | NUR ---
A-SCREENED D/T LOS S/P I&D OF R)KNEE; WOUND VAC IN PLACE HT: 65 IN. WT: 196.2 KG. BMI: 71.9 LABS: GLU 114, ALB 2.3, CRP 13.2 MEDS: REQUIP, PROTONIX, AMBIEN, LASIX, ROCEPHIN, XARELTO, PRN BOWEL MEDS, MORPHINE, REGLAN DIET RX: REGULAR. PO INTAKE 50-100% EST NUTR NEEDS: 2554-8406 KCALS (26-30 GM/KG IBW) 114-142 GM PROTEIN (2.0-2.5 GM/ KG IBW) 1 ML FLUID/KCAL D-AT NUTRITION RISK W/INCREASED PROTEIN NEEDS R/T HEALING AEB WOUND TO R)KNEE, NEED FOR WOUND VAC. I-ADD JOY BID AT L/D TO PROMOTE WOUND HEALING M/E-GOAL: PO INTAKE >/=75% OF NUTR. NEEDS BY DISCHARGE 1)F/U PO INTAKE, SUPPLEMENT, SKIN, AND POC IN 4-5 DAYS 2)ASSIST NEEDED
--- NOTE | 2016-08-06 15:30 | NUR ---
Phone call to [facility] at 0820 today. Spoke to POWER Aguero and [employer] and she states to fax information to her. Information was faxed at 0900. Phone call back from [facility] at 1005 stating they reviewed the information with their DON and they are not able to accept the patient because they do not have the equipment to meet her needs. I informed Chanel MCKINNEY and Tc MCKINNEY of this and Tc indicates that I need to call [facility] back and demand that they take patient back. He informs me that this was a [facility] patient, surgery was done there and then the patient had complications. Dr. Brandt agreed to see patient and treat her because her surgeon in [place] was out of town and the wound needed to be cared for immediately. Dr. Brandt was not assuming care of the patient. Patient will not be ready for dishcarge until sometime next week. I will contact [facility] again and make another referral to their facility.
--- NOTE | 2016-08-06 17:16 | NUR ---
Significant event: Patient is alert and oriented x3. VSS. Is tachy at times. Is on 4.5liters of O2 per NC-93%. IV to left AC started this afternoon for 1 unit of blood transfusion. PICC being placed this afternoon. Percocet at 1330. Soma given at 1020. Has been up in chair most of day. Did ambulate to bathroom and back to chair. Has transferred to commode with 2 assist, gait belt and walker. Wound vac changed today. Had an extra large bowel movement today. Cooperative with cares.
--- NOTE | 2016-08-07 04:32 | NUR ---
NEURO: A&O x 3. CARDIO: One unit of PRBCs finished infusing this shift. Xarelto. Foot pump to left foot. RESP: Cpap at night. 4.5 ltr NC during day. GI/: Lg BM this shift. No nausea. SKIN: Right knee pérez wrapped and in an immobilizer. Wound vac to right LE- 25ml out this shift. IV: PICC line Right upper arm. Peripheral in LAC. Both SL. ACTIVITY: 2 assist to pivot to commode. PT/OT. PAIN: Percocet Q2H PRN. Last given at 0200. PLAN: [place] [facility]?
[2016-08-07 05:26] LABS: BASOPHIL % 0.4 %; EOSINOPHIL # 0.5 K/uL (0.0-0.5); HEMATOCRIT 25.4 % (33.0-46.0); IMMATURE GRANULOCYTE # 0.1 K/uL (0.0-0.3); IMMATURE GRANULOCYTE % 1.2 %; LYMPHOCYTE # 1.3 K/uL (0.8-4.0); LYMPHOCYTE % 14.8 %; MCH 21.5 pg (27.0-34.0); MCV 76.7 fl (83.0-98.0); MONOCYTE # 0.4 K/uL (0.0-1.0); MONOCYTE % 4.9 %; MPV 9.4 fl (9.4-12.4); NEUTROPHIL # (ANC) 6.2 K/uL (1.8-7.8); NEUTROPHIL % 72.7 %; NRBC % 0.9 /100WBC (0-0.00); PLATELET COUNT 362 K/uL (150-450); RBC 3.31 M/uL (3.50-5.50); RDW-CV 18.3 % (11.9-14.6); WBC 8.5 K/uL (4.0-11.0)
[2016-08-07 05:33] LABS: HEMOGLOBIN 7.1 g/dL (10.0-15.0)
--- NOTE | 2016-08-07 15:59 | NUR ---
A&O. 2 PA HEAVY PIVIOT. VSS. CPAP AT NOC ON 4.5L TODAY. C/O PAIN TO L GREAT TOE. PERC X2 LAST AT 1630. IMMOBILIZER TO R LEG. WOUND VAC INTACT WITH 25 ML BLOODY DRAINAGE. PICC STACEY. VDS X2. LG BM TODAY. PLAN IS MINDEN SB TUESDAY
--- NOTE | 2016-08-08 05:06 | NUR ---
Significant Event: Patient alert and oreinted X4. Up with heavy 2 assist. Refusing pneumatics on and off this shift stating thats why her L) toe hurts. WOund vac to R) knee. Rudolph wrap and leg immobilizer on. Ice on. 1 incont void. Percocet X3 last at 0500. Bipap at night. Drink slot of water. PICC to R) arm. Vitals stable. Tachy at times in 110s. Afebrile. Plan for swing bed tuesday. Follow up: Monitor pain
[2016-08-08 07:02] LABS: ALBUMIN 2.3 gm/dL (3.5-5.0); ANION GAP 10.8 (10.0-19.0); BLOOD UREA NITROGEN 7 mg/dL (6-24); CALCIUM 8.2 mg/dL (8.5-10.5); CHLORIDE 100 mMol/L (96-110); CO2 34 mMol/L (22-32); CREATININE 0.6 mg/dL (0.5-1.1); ESTIMATED GFR (MDRD EQUATION) > 60; PHOSPHORUS 5.2 mg/dL (2.5-4.9); POTASSIUM 3.8 mMol/L (3.7-5.1); SODIUM 141 mMol/L (135-145)
[2016-08-08 07:04] LABS: BASOPHIL % 0.5 %; EOSINOPHIL # 0.5 K/uL (0.0-0.5); EOSINOPHIL % 6.1 %; HEMATOCRIT 25.5 % (33.0-46.0); IMMATURE GRANULOCYTE # 0.1 K/uL (0.0-0.3); IMMATURE GRANULOCYTE % 1.2 %; LYMPHOCYTE # 1.2 K/uL (0.8-4.0); LYMPHOCYTE % 14.6 %; MCH 21.8 pg (27.0-34.0); MCHC 28.2 gm/dL (32.0-36.5); MONOCYTE # 0.4 K/uL (0.0-1.0); MPV 9.3 fl (9.4-12.4); NEUTROPHIL # (ANC) 6.2 K/uL (1.8-7.8); NEUTROPHIL % 72.6 %; NRBC % 1.1 /100WBC (0-0.00); PLATELET COUNT 376 K/uL (150-450); RBC 3.31 M/uL (3.50-5.50); RDW-CV 18.3 % (11.9-14.6); WBC 8.5 K/uL (4.0-11.0)
[2016-08-08 07:05] LABS: HEMOGLOBIN 7.2 g/dL (10.0-15.0)
--- NOTE | 2016-08-08 17:48 | NUR ---
Significant Event: PT A&O x3. VSS. Pain well controlled with percocet. Dressing intact to R)leg, wound vac intact to R)leg, 50 ml out this shift. PT ambulates with 1-2 assist, gait belt and walker. Possible transfer to swing bed tomorrow. Follow up:
--- NOTE | 2016-08-09 04:18 | NUR ---
Significant Event: Patient alert and oriented X4. Up with heavy 2 assist walker and gait belt. WOrks with PT. Showered yesterday. Daily weight. Nurse draw. Picc to R) arm. Saline locked. BIPAP at night. 4.5 l oxygen during day. RT treatments. Wound vac to R) knee. Elevate knee and ice. Refusing to wear pneumatics stating its hurting her L) toe. Neuro checks normal. Restarted mobic. Gave percocet at 2101 and refused since. Will offer again before shift change. Hematest all stools. Planning to go to swing bed in [place]. Follow up: Monitor pain
[2016-08-09 05:20] LABS: ALBUMIN 2.3 gm/dL (3.5-5.0); BLOOD UREA NITROGEN 9 mg/dL (6-24); CALCIUM 8.1 mg/dL (8.5-10.5); CHLORIDE 99 mMol/L (96-110); CO2 34 mMol/L (22-32); CREATININE 0.6 mg/dL (0.5-1.1); ESTIMATED GFR (MDRD EQUATION) > 60; MAGNESIUM 2.2 mg/dL (1.3-2.6); PHOSPHORUS 5.1 mg/dL (2.5-4.9); SODIUM 142 mMol/L (135-145)
[2016-08-09 05:28] LABS: BASOPHIL % 0.5 %; EOSINOPHIL # 0.5 K/uL (0.0-0.5); EOSINOPHIL % 6.1 %; HEMATOCRIT 25.5 % (33.0-46.0); IMMATURE GRANULOCYTE # 0.1 K/uL (0.0-0.3); IMMATURE GRANULOCYTE % 1.6 %; LYMPHOCYTE # 1.2 K/uL (0.8-4.0); LYMPHOCYTE % 14.1 %; MCH 21.6 pg (27.0-34.0); MCHC 27.8 gm/dL (32.0-36.5); MCV 77.5 fl (83.0-98.0); MONOCYTE # 0.4 K/uL (0.0-1.0); MPV 9.5 fl (9.4-12.4); NEUTROPHIL # (ANC) 6.4 K/uL (1.8-7.8); NEUTROPHIL % 72.7 %; NRBC % 1.3 /100WBC (0-0.00); PLATELET COUNT 392 K/uL (150-450); RBC 3.29 M/uL (3.50-5.50); RDW-CV 18.8 % (11.9-14.6); WBC 8.7 K/uL (4.0-11.0)
[2016-08-09 05:29] LABS: HEMOGLOBIN 7.1 g/dL (10.0-15.0)
--- NOTE | 2016-08-09 09:33 | NUR ---
Phone call from HANK Farrar for Dr. Brandt stating patient is ready for discharge, but she prefers to go to [place] [facility] and not [facility]. I told Tc, as my notes from last week state, that [place] declined on accepting patient due to not having the equipment needed to care for her weight. Last Tuesday, Tc and I talked about how Dr. Love took patient on as a courtesy to the Dr Eric in [place] since he was out of town when patient needed to be seen. Dr. Brandt was not assuming care of patient and plans and intentions were to send patient back to Dr. Talbot for care. I contacted Kady at [facility] and explained the above to her. She agreed to have me fax patient's information to her. Kady states she will talk to her final assembly and packing supervisor and share the above information with her and contact me back on whether or not they can accept. I did inform her that patient is ready for discharge today. Will wait to hear back from Kady. Patient's information was faxed to [facility] at [phone] from [facility].
--- NOTE | 2016-08-09 15:31 | NUR ---
Significant Event: PT A/O. VSS ON 4L O2, AFEBRILE. PICC TO STACEY, CONTINUES ON IV ABX. PRN PERCOCET FOR PAIN X2 TODAY. PT/OT WORKING WITH. PT UP TO BSC AND CHAIR W/ 2PA, GAITBELT AND WALKER. IMMOBILIZER TO RLE, WOUND VAC. CSM WNL. PT IS DAILY WT. ORDERS TO HEMETEST ALL STOOLS. WEARS BIPAP AT HS. CM MADE REFERAL TO [facility]. Follow up: CONTINUE TO MONITOR
--- NOTE | 2016-08-10 04:26 | NUR ---
NEURO: A&O. Tingling R LE. CMS intact. CARDIO: Foot pump to LLE. RESP: 4 ltrs via nc during the day. CPAP at [facility]. GI/: Need stools x 2 to lab. No nausea. SKIN: Immobilizer to right leg. Wound vac to right leg. IV: PICC RUE. PIV left FA. ACTIVITY: 2 assisst to BSC. PAIN: Percocet given x 3 this shift- last at 0130. PLAN: [facility] in [place]?
[2016-08-10 06:01] LABS: BASOPHIL % 0.2 %; EOSINOPHIL # 0.6 K/uL (0.0-0.5); EOSINOPHIL % 6.7 %; HEMATOCRIT 25.9 % (33.0-46.0); IMMATURE GRANULOCYTE # 0.1 K/uL (0.0-0.3); IMMATURE GRANULOCYTE % 1.4 %; LYMPHOCYTE # 1.3 K/uL (0.8-4.0); LYMPHOCYTE % 14.5 %; MCH 21.7 pg (27.0-34.0); MCHC 27.8 gm/dL (32.0-36.5); MONOCYTE # 0.4 K/uL (0.0-1.0); MONOCYTE % 4.4 %; MPV 9.7 fl (9.4-12.4); NEUTROPHIL # (ANC) 6.5 K/uL (1.8-7.8); NEUTROPHIL % 72.8 %; NRBC % 0.8 /100WBC (0-0.00); PLATELET COUNT 434 K/uL (150-450); RBC 3.32 M/uL (3.50-5.50); RDW-CV 19.2 % (11.9-14.6)
[2016-08-10 06:03] LABS: BLOOD UREA NITROGEN 9 mg/dL (6-24); CALCIUM 8.2 mg/dL (8.5-10.5); CHLORIDE 101 mMol/L (96-110); CO2 34 mMol/L (22-32); CREATININE 0.6 mg/dL (0.5-1.1); ESTIMATED GFR (MDRD EQUATION) > 60; SODIUM 142 mMol/L (135-145)
[2016-08-10 06:11] LABS: HEMOGLOBIN 7.2 g/dL (10.0-15.0)
--- NOTE | 2016-08-10 12:11 | NUR ---
A-NUTRITION F/U WOUND VAC TO R)KNEE. LABS: NA 142, K+ 4.0, GLU 120, BUN 9, BROADCAST PRODUCER 0.6, ALB 2.3, CRP 13.0 MEDS: MOBIC DIET RX:REGULAR W/JOY BID. PO INTAKE 50-100%; AVG PO INTAKE SINCE ADMIT 75%. EST NUTR NEEDS: 8814-7056 KCALS AND 114-142 GM PROTEIN D-AT NUTRITION RISK W/INCREASED PROTEIN NEEDS R/T HEALING AEB WOUND TO R)KNEE, WOUND VAC I-CONTINUE W/JOY BID TO HELP PROMOTE HEALING M/E-GOAL: PO INTAKE >/=75% FOR DURATION OF ADMIT 1)F/U PO INTAKE, SUPPLEMENT, SKIN, AND POC (3-5 DAYS) 2)ASSIST NEEDED
--- NOTE | 2016-08-10 13:40 | NUR ---
0820 phone call to [facility] in [place] to see if they made a decision on whether or not they are abvle to accept patient back. I spoke to Valarie and she was not working yesterday so she states she does not know anything about this case. She will connect with her staff and get back to me. I placed a second phone call to [facility] at 1030 and spoke to Esme- she states they have not made a decision, but she would have someone call me back. At 1045 I received a call from Valarie at [facility] and she indicated that they are not able to accept patient because they need their open beds for their orthopedic patients as they have a lot of scheduled surgeries. She Valarie states that the patient's surgeon also sees patient's in [place], so Valarie made a referral to [place] [facility] see if [facility] have [facility] for patient. Valarie states she faxed all the papers to [facility] and she encouraged me to get in touch with [place] to see if they are able to accept patient. I explained to Valarie that I thought patient should be a priority to them as she had her surgery there and is need of a bed. Valarie told me that the only way they could accept patient is to cancel a surgery and they are not willing to do that. I voiced my disapproval of this and informed her that the patient specifically asked me if she did something wrong, because she is feeling like [facility] just does not want her back there as a patient. Valarie said she is willing to talk to the patient and states she has a good relationship with her. I told her that I would have the patient call her if she has any questions. I went in to the room and talked to patient at 1050. I explained to the patient the above reason that [facility] states they cannot accept her back and that they made a referral to [facility]. Patient is willing to go to [place], but she voices her concerns about staying her her previous surgeon. She states that at this point and time she does not feel that the surgeon or [facility] has her best interest at heart and she feels like she is not a priority to them. She would like her care transferred to Dr. Barndt. I explained to her that I am happy to share this with Dr. Brandt's PA Tc, but that I cannot guarantee that Dr. Brandt can take her on as a patient at this time. Patient voiced her understanding of this. I placed a phone call to HANK Farrar for Dr. Brandt at 1310 I explained all of the above to Tc. He states that Dr. Brandt has been in contact with the surgeon in [place] via phone and/or text and was under the impression that the surgeon was securing a bed for patient back there for patient. I shared with Tc that the patient prefers to have Dr. Brandt oversee her care at this point and time. Tc was going to talk to Dr. Brandt about all of this and get back to me on whether or not he is able to accept the patient on his census or if the surgeon in [place] is securing a bed there for her. I also called [place] at [facility] but had to leave her a message at 1410. Will wait to hear back from her. placed a phone call to Tc
--- NOTE | 2016-08-10 16:59 | NUR ---
Significant Event:Is A/O.Has Rt upper arm PICC line.Has Rt.leg immobilizer on & gauze & pérez wrap that is D/I.Has wound vac to Rt knee.Had percocet x3,last at 1645.Hematest stools.Has been up with walker & 1 assist.O2 on at 4L/NC.Wears Cpap at noc.Rt.lower leg "alittle tingly".Maybe leaving tomorrow afternoon. Follow up:
--- NOTE | 2016-08-11 05:20 | NUR ---
NEURO: A&O. Tingling to RLE. CARDIO: Foot pump to LLE. Xarelto. RESP: 4ltrs via NC during day. CPAP at night. GI/: Needs 2 more stools to lab. Last sample negative for blood. Ambulated to bathroom x 1 tonight and then used the BSC. SKIN: Immobilizer to RLE. Wound vac to RLE. RLE Rudolph wrap CDI. IV: PICC RUE. SL. PIV LFA. SL. ACTIVITY: 1 assist with gait belt and walker. PAIN: Percocet Q2H. Given x 3 this shift. PLAN: [place] at 1300.
--- NOTE | 2016-08-11 15:00 | NUR ---
Call from Simran at [facility] asking that I phone her back when I have a free minute. I phoned her back [phone], Alexandra answered as Simran was down in their ER seeing a patient. I gave her verbal update on Briana, let them know that, from what I could see, Briana would be coming to them for Q24 IV Abx needs as well as her wound vac needs. I let Alexandra know that to my knowledge, [facility] would be required to provide the wound vac for Briana when she gets there. Alexandra says if this is the case, then it will take 24 hours to get the wound vac in. I did call down to wound care, talked with Nawaf, confirmed that [facility] would have to provide the wound vac for Briana when she goes there. I updated Alexandra to this so she could let Simran know to start working on that yet today so we could get her there tomorrow. After I got off the phone with Alexandra, Dr. Shahid's PA, Tc phoned me. Let me know that from his standpoint she would be cleared for discharge tomorrow to [facility] if they were to accept. I asked if he felt like Briana could go via personal auto, he states he thinks she could as long as she has leg room, but wonders is ambulance would be better because of O2 needs. I will address this with Dr. Coon and then plan accordingly. I let Alexandra know to have Simran call me with any other questions that might have to come up. Will tentatively plan for dismissal to [facility] tomorrow pending if they get the wound vac ordered in time and also continue to work on transportation clarification.
--- NOTE | 2016-08-11 19:19 | NUR ---
Significant Event: Alert amd oriented X 3. O2 nasal cannula at 3L. Cpap at night. SBP 120's and 130's. HR 70's and 90's. Up with 1 assist gait belt and walker. Weight bearing as tolerated. Right leg has pérez wrap and immobilizer on top. Wound Vac under pérez wrap with 50 ml out this shift. Immobilizer to be on at all times. Foot pump to left foot. Hemacult every stool. Percocet given X 4, last given at 1654. Soma given for spasms at 1218. PICC to upper right arm, flushes well with good blood return. Follow up: [place] [facility] at 1300 .
--- NOTE | 2016-08-12 03:21 | NUR ---
Shift Summary: Patient can ambulate with walker and standby assist. Wearing right knee immobilizer at all times. Has wound vac to right knee. No output this shift. Is on 3L O2 per NC when not sleeping and on BiPap when sleeping. Taking one percocet about every 2 hr. Last one around 0215. Voiding without difficulty. Tolerating regular diet well. Will transfer to [facility] at 1pm today per ambulance. She has single lumen PICC line to right upper arm. Has good blood return and flushes well. Dressing and cap changed yesterday.
--- NOTE | 2016-08-12 11:14 | NUR ---
D: pt states pain is tolerable. Right leg brace got wet in shower, off only to dry out. Wound vac dressing d/i, did change pérez wrap and kerlex dressing to right leg. Wound vac changed to home wound vac machine by [facility] at 1130. Up with standby assist. Strict I&O/daily wt. PICC to right arm, dressing changed yesterday. Had a bm yesterday. VS stable. Ambulance to come get pt at 1200. a/o x3. On 3 liters O2 during the day and bipap at night.
--- NOTE | 2016-08-12 13:21 | NUR ---
Met with ADRIANA Bolaños that followed Briana yesterday. Patient is scheduled to go by ambulance to [facility] at 1200 today. Met with Peggy Elam and Tc Shahid at 0935 and patient is ready for discharge [facility]. I placed a phone call to EMS and confirmed that patient was on the schedule for transport to [place]. Zamzam states the [facility] crew is coming to get patient so they will be here right at 1200. I called Piedad in the [facility] clinic at 0943 and confirmed with her that patient is ready for transfer from their standpoint. Piedad was going to send a message to Nawaf who is covering the floor today and have her put the patient's home wound vac on prior to [address] Rueda at 1010 and informed him that patient will need to have all discharge papers completed before 1200 because ambulance was coming at noon for transport. At approximately 1130 I had a call from Simran at [facility] stating the doctor to doctor had not been done yet. I let Simran know that HANK Farrar for Dr. Brandt called Nicole Lutz APRN at 1010 and left her a voice mail, but he has not heard back from Nicole. I also called patient's nurse, Leigh Ann at 1130 and asked her to make the nurse to nurse call. She is to call [phone] and ask for Charge Nurse [place]. Leigh Ann was going to get this done. All discharge papers were faxed to Simran at [phone] at 1050 today. No other discharge needs at this time.
== END 2016-08-12 12:53 | disposition swing bed (61) | DRG 463 ==
LOC: GMSU 14:43
PROVIDERS: Family Medicine; Internal Medicine; Nurse Practitioner Family; Physician Assistant; Physician Assistant Medical; ADMIT Orthopaedic Surgery Adult Reconstructive Orthopaedic Surgery
PROC: 0S9C3ZX Drainage of Right Knee Joint, Percutaneous Approach, Diagnostic (ICD-10-PCS; principal; 2016-08-02)
PROC: 0SHC08Z Insertion of Spacer into Right Knee Joint, Open Approach (ICD-10-PCS; 2016-08-03)
PROC: 0JDN0ZZ Extraction of Right Lower Leg Subcutaneous Tissue and Fascia, Open Approach (ICD-10-PCS; 2016-08-03)
PROC: 0SPC0JZ Removal of Synthetic Substitute from Right Knee Joint, Open Approach (ICD-10-PCS; 2016-08-03)
PROC: 2W1LX6Z Compression of Right Lower Extremity using Pressure Dressing (ICD-10-PCS; 2016-08-03)
PROC: 3E0102A Introduction of Anti-Infective Envelope into Subcutaneous Tissue, Open Approach (ICD-10-PCS; 2016-08-03)
PROC: B246ZZZ Ultrasonography of Right and Left Heart (ICD-10-PCS; 2016-08-08)
DX: T84.53XA Infection and inflammatory reaction due to internal right knee prosthesis, initial encounter (principal); A40.9 Streptococcal sepsis, unspecified; J96.21 Acute and chronic respiratory failure with hypoxia; Z68.45 Body mass index [BMI] 70 or greater, adult; D62 Acute posthemorrhagic anemia; T81.30XA Disruption of wound, unspecified, initial encounter; E66.01 Morbid (severe) obesity due to excess calories; M86.9 Osteomyelitis, unspecified; J96.11 Chronic respiratory failure with hypoxia; G47.33 Obstructive sleep apnea (adult) (pediatric); I48.91 Unspecified atrial fibrillation; J45.909 Unspecified asthma, uncomplicated; Z96.652 Presence of left artificial knee joint; Z96.659 Presence of unspecified artificial knee joint
CPT/HCPCS: C1713; C1751; C1776; J0696; J1170; J1335; J2001; J2270; J2405; J2543; J3010; J3370; J3480; J7030; J7040; J7050; J7612; P9016; Q9957

== ENCOUNTER → 2016-08-12 | Outpatient (CLI) | payer MEDICARE ==
[~2016-08-12] MED LIST: AMBIEN10 MG PO; BACTRIM DS1 TAB PO; BREO ELLIPTA 21 EACH INH; CARTIA XT240 MG PO; LANOXIN (DIGI125 MCG PO; LASIX20 MG PO; LOPRESSOR25 MG PO; MOBIC15 MG PO; NEURONTIN300 MG PO; PERCOCET 10-321 EACH PO; POTASSIUM CHLO10 MEQ PO; PROAIR HFA8.5 GM INH; PROTONIX40 MG PO; ROPINIROLE HCL5 MG PO; TUDORZA PRESS400 MCG INH; TYLENOL EXTRA500 MG PO
== END | disposition disaster alternative care site (69) ==
LOC: GAMB 13:06
DX: M25.561 Pain in right knee (principal); I10 Essential (primary) hypertension; I50.9 Heart failure, unspecified; R22.41 Localized swelling, mass and lump, right lower limb; Z96.653 Presence of artificial knee joint, bilateral; Z79.52 Long term (current) use of systemic steroids; Z79.1 Long term (current) use of non-steroidal anti-inflammatories (NSAID); Z79.891 Long term (current) use of opiate analgesic; Z79.899 Other long term (current) drug therapy; Z88.8 Allergy status to other drugs, medicaments and biological substances
CPT/HCPCS: A0425; A0428